=== PATIENT | male | born 1975 ===

== ENCOUNTER 2017-10-14 11:19 | Observation (INO) | payer MEDICARE ==
[2017-10-14 11:23] VITALS: BMI 46.3
[2017-10-14] MEDS ORDERED: Sodium Chloride 0.9% 1,000 ML IV STA ×2 (11:44→14:31)
--- NOTE | 2017-10-14 11:44 | ED PDOC ---
HPI: Psych/Substance Abuse Time Seen by Provider: 10/14/17 11:28 Chief Complaint (Provider): OD - 10-1 tabs of latuda and 10-15 tabs of depakote History Per: Patient History/Exam Limitations: no limitations Onset/Duration Of Symptoms: Hrs (1) Current Symptoms Are (Timing): Still Present Associated Symptoms: Depression, Suicidal Thoughts Additional Complaint(s): 42 yo male with history of bipolar disorder and DM presents after taking 10-15 tabs of latuda and 10-15 tabs of depakote 1 hour [facility]ITCHER. Pt states he called 911 after taking them because "he needs help". Pt denies medical complaints on arrival. Pt reports feel depressed. Past Medical History Reviewed: Historical Data, Nursing Documentation, Vital Signs Vital Signs: Last Vital Signs Temp 98.5 F 10/14/17 11:23 Pulse 87 10/14/17 11:23 Resp 17 10/14/17 11:23 BP 96/66 L 10/14/17 11:23 Pulse Ox 97 10/14/17 11:23 - Medical History PMH: Anxiety, Bipolar Disorder, Depression, Diabetes, Paranoia, Schizophrenia, Sleep Apnea Denies: Hepatitis, HIV, HTN, Chronic Kidney Disease, Seizures, Sexually Transmitted Disease - Surgical History Surgical History: No Surg Hx - Family History Family History: States: Unknown Family Hx - Living Arrangements Living Arrangements: With Family - Home Medications Home Medications: Ambulatory Orders Medication Instructions Recorded FLUoxetine [Prozac] 20 mg PO DAILY #30 cap 11/22/16 SITagliptin [Januvia] 25 mg PO DAILY #30 11/22/16 Divalproex [Depakote DR] 1 tab PO DAILY 10/14/17 Lurasidone HCl [Latuda] 1 tab PO HS 10/14/17 hydrOXYzine Pamoate [Vistaril] 1 cap PO TID 10/14/17 - Allergies Allergies/Adverse Reactions: Allergies Allergy/AdvReac Type Severity Reaction Status Date / Time carrot Allergy Verified 02/28/17 17:36 celery Allergy Verified 02/28/17 17:36 haloperidol [From Haldol] Allergy Verified 02/28/17 17:36 Penicillins Allergy Verified 02/28/17 17:36 risperidone [From Risperdal] Allergy Verified 02/28/17 17:36 Review of Systems ROS Statement: Except As Marked, All Systems Reviewed And Found Negative Constitutional: Negative for: Fever, Chills Gastrointestinal: Negative for: Nausea, Vomiting, Abdominal Pain, Diarrhea Neurological: Negative for: Confusion, Dizziness Psych: Positive for: Depression, Suicidal ideation Physical Exam - Reviewed Nursing Documentation Reviewed: Yes Vital Signs Reviewed: Yes - Physical Exam Appears: Positive for: Well, Non-toxic, No Acute Distress Head Exam: Positive for: ATRAUMATIC, NORMAL INSPECTION, NORMOCEPHALIC Skin: Positive for: Normal Color, Warm, DRY Eye Exam: Positive for: Normal appearance ENT: Positive for: Normal ENT Inspection Neck: Positive for: Normal, Painless ROM Cardiovascular/Chest: Positive for: Regular Rate, Rhythm Respiratory: Positive for: Normal Breath Sounds. Negative for: Accessory Muscle Use, Respiratory Distress Gastrointestinal/Abdominal: Positive for: Normal Exam, Soft. Negative for: Tenderness Back: Positive for: Normal Inspection Extremity: Positive for: Normal ROM Neurologic/Psych: Positive for: Alert, Oriented - Laboratory Results Result Diagrams: 10/14/17 12:20 10/14/17 12:32 - ECG O2 Sat by Pulse Oximetry: 97 Pulse Ox Interpretation: Normal Medical Decision Making Medical Decision Making: Initial labs normal. Active charcoal given. Pt vomited large amount according to RN x 1. PT reports alert and oriented throughout visit. Pt tolerated PO. 2nd depakote level elevated. Poison control recommends following depakote level with LFT until it begins to trend down. Admission to Dr. Bradshaw, Telemetry. PT continued on 1:1. Psychiatric floor once medically cleared. Disposition - Clinical Impression Clinical Impression: Depression, Overdose of drug/medicinal substance - Disposition Disposition Time: 18:10 Condition: STABLE - Pt Status Changed To: Hospital Disposition Of: Observation - POA Present On Arrival: None
[2017-10-14] MEDS ORDERED: Activated Charcoal/Sorbitol 25 GM/120 ML PO ONE (12:09)
[2017-10-14 12:16] LABS: SQUAMOUS EPITHIAL < 1 /hpf (0-5); URINE BILIRUBIN NEGATIVE (NEGATIVE); URINE BLOOD NEGATIVE (NEGATIVE); URINE CLARITY SLIGHTY-CLOUDY (Clear); URINE COLOR YELLOW (YELLOW); URINE GLUCOSE (UA) NEG (Normal); URINE LEUKOCYTE ESTERASE NEG Leu/uL (Negative); URINE PROTEIN NEGATIVE (NEGATIVE)
[2017-10-14 12:33] LABS: BASO # 0.1 K/uL (0.0-0.2); BASO % 0.9 % (0.0-2.0); EOS % 0.2 % (0.0-4.0); HEMOGLOBIN 14.2 g/dL (12.0-18.0); LYMPH # 3.2 K/uL (1.0-4.3); LYMPH % 37.6 % (20.0-40.0); MEAN CELL VOLUME 86.3 fl (80.0-94.0); MEAN CORPUSCULAR HEMOGLOBIN 28.9 pg (27.0-31.0); MEAN CORPUSCULAR HGB CONC 33.5 g/dL (33.0-37.0); MEAN PLATELET VOLUME 10.4 fl (7.2-11.7); MONO # 0.6 K/uL (0.0-0.8); MONO % 6.9 % (0.0-10.0); NEUT # 4.6 K/uL (1.8-7.0); NEUT % 54.4 % (50.0-75.0); NRBC % 0.4 % (0.0-0.0); RBC 4.93 Mil/uL (4.40-5.90); WHITE BLOOD COUNT 8.5 K/uL (4.8-10.8)
[2017-10-14 12:38] LABS: INR 1.1 (0.9-1.2); PARTIAL THROMBOPLASTIN TIME 29.5 Seconds (25.6-37.1); PROTHROMBIN TIME 11.7 Seconds (9.8-13.1)
[2017-10-14 12:44] LABS: BARBITURATES, UR NEGATIVE (NEGATIVE); BENZODIAZEPINES, UR NEGATIVE (NEGATIVE); OPIATES, UR NEGATIVE (NEGATIVE); PHENCYCLIDINE, UR NEGATIVE (NEGATIVE)
[2017-10-14 12:59] LABS: ACETAMINOPHEN < 10.0 ug/ml (10.0-30.0); SALICYLATE < 1.0 mg/dl
[2017-10-14 13:00] LABS: ALB/GLOB RATIO 0.9 (1.0-2.1); ALBUMIN 3.9 g/dL (3.5-5.0); ALT/SGPT 49 U/L (21-72); AST/SGOT 33 U/L (17-59); BLOOD UREA NITROGEN 15 mg/dl (9-20); CALCIUM 9.2 mg/dL (8.4-10.2); GFR AFRICAN-AMERICAN > 60; GFR NON-AFRICAN AMERICAN > 60
--- NOTE | 2017-10-14 16:05 | CARD ---
APPROVED REPORT EKG Measurement Heart [id number] <Conclusion> Normal sinus rhythm Normal ECG
[2017-10-15] MEDS: Sodium Chloride 0.45% 1,000 ML IV SCH ×2 (00:51→09:39)
[2017-10-15 01:12] LABS: ALBUMIN 3.4 g/dL (3.5-5.0); ALT/SGPT 51 U/L (21-72); AST/SGOT 28 U/L (17-59); BLOOD UREA NITROGEN 14 mg/dl (9-20); CALCIUM 8.2 mg/dL (8.4-10.2); GFR AFRICAN-AMERICAN > 60; GFR NON-AFRICAN AMERICAN > 60
[2017-10-15 05:54] LABS: BASO # 0.1 K/uL (0.0-0.2); BASO % 0.7 % (0.0-2.0); EOS # 0.1 K/uL (0.0-0.7); EOS % 0.6 % (0.0-4.0); HEMOGLOBIN 12.8 g/dL (12.0-18.0); LYMPH % 34.9 % (20.0-40.0); MEAN CORPUSCULAR HEMOGLOBIN 28.6 pg (27.0-31.0); MEAN CORPUSCULAR HGB CONC 32.5 g/dL (33.0-37.0); MEAN PLATELET VOLUME 9.8 fl (7.2-11.7); MONO # 0.5 K/uL (0.0-0.8); MONO % 6.1 % (0.0-10.0); NEUT % 57.7 % (50.0-75.0); NRBC % 0.3 % (0.0-0.0); RBC 4.48 Mil/uL (4.40-5.90); RED CELL DISTRIBUTION WIDTH 14.9 % (11.5-14.5); WHITE BLOOD COUNT 8.7 K/uL (4.8-10.8)
[2017-10-15] MEDS: Insulin Lispro (humaLOG) 100 Units/ml Inj SC SCH ×2 (08:16→12:48)
--- NOTE | 2017-10-15 08:19 | RAD ---
HISTORY: Admission COMPARISON: Chest radiographs 12/23/2014. TECHNIQUE: Chest PA and lateral FINDINGS: LUNGS: No active pulmonary disease. PLEURA: No significant pleural effusion identified. No pneumothorax apparent. CARDIOVASCULAR: Normal. OSSEOUS STRUCTURES: No significant abnormalities. VISUALIZED UPPER ABDOMEN: Normal. OTHER FINDINGS: None. IMPRESSION: No interval acute cardiopulmonary disease appreciated.
[2017-10-15 08:34] VITALS: RESP 18
[2017-10-15] MEDS ORDERED: Enoxaparin 40 mg Syringe SC SCH (09:00)
[2017-10-15] MEDS ORDERED: Pneumococcal 23-Valent Vaccine IM ONE (09:05)
--- NOTE | 2017-10-15 10:19 | CP.PCM.CON ---
History of Present Illness - History of Present Illness History of Present Illness: pt is 42 ya old male with previous psychiatric diagnosis of schizoaffective disorder, diagnosed after , multiple inpatient hospitalizations pt currently has not been compliant with medications of follow up for about a month , pt stated he went to [facility] about two months ago to seek better treatment for his illness, was admitted in a hospital there did not feel better continued to be anxious and experiencing suicidal ideations and auditory hallucinations, he moved back to [place] two weeks ago was staying with his mother became hopeless and helpless and experiencing panic attacks, on day he presented to ER he experienced suicidal ideation, resulting in overdose on medications , then he called 911 pt continues to be depressed and anxious continues to have passive suicidal ideation, reported non command auditory hallucinations putting him down, denied manic symptoms, denied substance abuse He says his psychiatric history began shortly after 12/24 as he worked near [facility] and began having flashbacks. He says shortly thereafter he became religiously preoccupied and a few years later began hearing voices. Past Patient History - Infectious Disease Hx of Infectious Diseases: None - Tetanus Immunizations Tetanus Immunization: Unknown - Past Medical History & Family History Past Medical History?: Yes - Past Social History Smoking Status: Current Some Days Smoker - CARDIAC Hx Hypertension: No - PULMONARY Hx Sleep Apnea: Yes - NEUROLOGICAL Hx Seizures: No - HEENT Hx HEENT Problems: No - RENAL Hx Chronic Kidney Disease: No - ENDOCRINE/METABOLIC Hx Endocrine Disorders: Yes Hx Diabetes Mellitus Type 2: Yes - HEMATOLOGICAL/ONCOLOGICAL Hx Human Immunodeficiency Virus (HIV): No - INTEGUMENTARY Hx Dermatological Problems: No - MUSCULOSKELETAL/RHEUMATOLOGICAL Hx Musculoskeletal Disorders: No Hx Falls: No - GASTROINTESTINAL Hx Gastrointestinal Disorders: No - GENITOURINARY/GYNECOLOGICAL Hx Sexually Transmitted Disorders: No - PSYCHIATRIC Hx Anxiety: Yes Hx Bipolar Disorder: Yes Hx Depression: Yes Hx Paranoia: Yes Hx Schizophrenia: Yes Hx Substance Use: No - SURGICAL HISTORY Hx Surgeries: Yes Hx Orthopedic Surgery: Yes (right leg) - ANESTHESIA Hx Anesthesia: Yes Hx Anesthesia Reactions: No Meds Allergies/Adverse Reactions: Allergies Allergy/AdvReac Type Severity Reaction Status Date / Time carrot Allergy Verified 02/28/17 17:36 celery Allergy Verified 02/28/17 17:36 haloperidol [From Haldol] Allergy Verified 02/28/17 17:36 Penicillins Allergy Verified 02/28/17 17:36 risperidone [From Risperdal] Allergy Verified 02/28/17 17:36 - Medications Medications: Current Medications Enoxaparin Sodium (Lovenox) 40 mg SC DAILY [facility] PRN Reason: Protocol Last Admin: 10/15/17 09:11 Dose: 40 mg Sodium Chloride (Sodium Chloride 0.45%) 1,000 mls @ 100 mls/hr IV .Q10H [facility] Last Admin: 10/15/17 09:39 Dose: Not Given Insulin Human Lispro (Humalog) 0 units SC ACHS [facility] PRN Reason: Protocol Last Admin: 10/15/17 08:16 Dose: Not Given Sitagliptin Phosphate (Januvia) 25 mg PO DAILY [facility] Last Admin: 10/15/17 09:10 Dose: 25 mg Physical Exam - Psychiatric Exam Additional comments: pt seen in bed, anxious mood depressed affect, speech soft and slow thought form coherent alert, awake.ox3 fair insight and poor judgment Results - Vital Signs Recent Vital Signs: Last Vital Signs Temp 98.3 F 10/15/17 08:34 Pulse 74 10/15/17 08:34 Resp 18 10/15/17 08:34 BP 107/68 10/15/17 08:34 Pulse Ox 97 10/15/17 08:34 - Labs Result Diagrams: 10/15/17 05:15 10/15/17 00:52 Labs: Laboratory Results - last 24 hr 10/14/17 10/14/17 10/14/17 11:59 12:00 12:00 WBC RBC Hgb Hct MCV MCH MCHC RDW Plt Count MPV Neut % (Auto) Lymph % (Auto) Vance % (Auto) Eos % (Auto) Baso % (Auto) Neut # (Auto) Lymph # (Auto) Vance # (Auto) Eos # (Auto) Baso # (Auto) PT INR APTT Sodium Potassium Chloride Carbon Dioxide Anion Gap BUN Creatinine Est GFR ( Amer) Est GFR (Non-Af Amer) POC Glucose (mg/dL) 88 Random Glucose Calcium Total Bilirubin AST ALT Alkaline Phosphatase Total Protein Albumin Globulin Albumin/Globulin Ratio Urine Color Yellow Urine Clarity Slighty-cloudy Urine pH 7.0 Ur Specific [place] 1.023 Urine Protein Negative Urine Glucose (UA) Neg Urine Ketones Trace Urine Blood Negative Urine Nitrate Negative Urine Bilirubin Negative Urine Urobilinogen 4.0 Ur Leukocyte Esterase Neg Urine RBC (Auto) 3 Urine Microscopic WBC < 1 Ur Squamous Epith Cells < 1 Salicylates Urine Opiates Screen Negative Urine Methadone Screen Negative Acetaminophen Ur Barbiturates Screen Negative Valproic Acid Ur Phencyclidine Scrn Negative Ur Amphetamines Screen Negative U Benzodiazepines Scrn Negative U Oth Cocaine Metabols Negative U Cannabinoids Screen Negative Alcohol, Quantitative 10/14/17 10/14/17 10/14/17 12:20 12:20 12:20 WBC 8.5 RBC 4.93 Hgb 14.2 Hct 42.5 MCV 86.3 MCH 28.9 MCHC 33.5 RDW 15.0 H Plt Count 172 MPV 10.4 Neut % (Auto) 54.4 Lymph % (Auto) 37.6 Vance % (Auto) 6.9 Eos % (Auto) 0.2 Baso % (Auto) 0.9 Neut # (Auto) 4.6 Lymph # (Auto) 3.2 Vance # (Auto) 0.6 Eos # (Auto) 0.0 Baso # (Auto) 0.1 PT 11.7 INR 1.1 APTT 29.5 Sodium Potassium Chloride Carbon Dioxide Anion Gap BUN Creatinine Est GFR ( Amer) Est GFR (Non-Af Amer) POC Glucose (mg/dL) Random Glucose Calcium Total Bilirubin AST ALT Alkaline Phosphatase Total Protein Albumin Globulin Albumin/Globulin Ratio Urine Color Urine Clarity Urine pH Ur Specific [place] Urine Protein Urine Glucose (UA) Urine Ketones Urine Blood Urine Nitrate Urine Bilirubin Urine Urobilinogen Ur Leukocyte Esterase Urine RBC (Auto) Urine Microscopic WBC Ur Squamous Epith Cells Salicylates < 1.0 Urine Opiates Screen Urine Methadone Screen Acetaminophen < 10.0 L Ur Barbiturates Screen Valproic Acid 54.0 Ur Phencyclidine Scrn Ur Amphetamines Screen U Benzodiazepines Scrn U Oth Cocaine Metabols U Cannabinoids Screen Alcohol, Quantitative 10/14/17 10/14/17 10/14/17 12:32 16:16 21:09 WBC RBC Hgb Hct MCV MCH MCHC RDW Plt Count MPV Neut % (Auto) Lymph % (Auto) Vance % (Auto) Eos % (Auto) Baso % (Auto) Neut # (Auto) Lymph # (Auto) Vance # (Auto) Eos # (Auto) Baso # (Auto) PT INR APTT Sodium 146 Potassium 4.0 Chloride 110 H Carbon Dioxide 20 L Anion Gap 20 BUN 15 Creatinine 0.9 Est GFR ( Amer) > 60 Est GFR (Non-Af Amer) > 60 POC Glucose (mg/dL) Random Glucose 87 Calcium 9.2 Total Bilirubin 0.6 AST 33 ALT 49 Alkaline Phosphatase 96 Total Protein 8.0 Albumin 3.9 Globulin 4.1 H Albumin/Globulin Ratio 0.9 L Urine Color Urine Clarity Urine pH Ur Specific [place] Urine Protein Urine Glucose (UA) Urine Ketones Urine Blood Urine Nitrate Urine Bilirubin Urine Urobilinogen Ur Leukocyte Esterase Urine RBC (Auto) Urine Microscopic WBC Ur Squamous Epith Cells Salicylates Urine Opiates Screen Urine Methadone Screen Acetaminophen Ur Barbiturates Screen Valproic Acid 131.8 H 108.4 H Ur Phencyclidine Scrn Ur Amphetamines Screen U Benzodiazepines Scrn U Oth Cocaine Metabols U Cannabinoids Screen Alcohol, Quantitative < 10 10/15/17 10/15/17 10/15/17 00:52 00:52 05:15 WBC 8.7 RBC 4.48 Hgb 12.8 Hct 39.4 MCV 88.0 MCH 28.6 MCHC 32.5 L RDW 14.9 H Plt Count 139 MPV 9.8 Neut % (Auto) 57.7 Lymph % (Auto) 34.9 Vance % (Auto) 6.1 Eos % (Auto) 0.6 Baso % (Auto) 0.7 Neut # (Auto) 5.0 Lymph # (Auto) 3.0 Vance # (Auto) 0.5 Eos # (Auto) 0.1 Baso # (Auto) 0.1 PT INR APTT Sodium 142 Potassium 3.7 Chloride 109 H Carbon Dioxide 22 Anion Gap 15 BUN 14 Creatinine 0.9 Est GFR ( Amer) > 60 Est GFR (Non-Af Amer) > 60 POC Glucose (mg/dL) Random Glucose 103 Calcium 8.2 L Total Bilirubin 0.5 AST 28 ALT 51 Alkaline Phosphatase 83 Total Protein 6.9 Albumin 3.4 L Globulin 3.4 Albumin/Globulin Ratio 1.0 Urine Color Urine Clarity Urine pH Ur Specific [place] Urine Protein Urine Glucose (UA) Urine Ketones Urine Blood Urine Nitrate Urine Bilirubin Urine Urobilinogen Ur Leukocyte Esterase Urine RBC (Auto) Urine Microscopic WBC Ur Squamous Epith Cells Salicylates Urine Opiates Screen Urine Methadone Screen Acetaminophen Ur Barbiturates Screen Valproic Acid 81.2 Ur Phencyclidine Scrn Ur Amphetamines Screen U Benzodiazepines Scrn U Oth Cocaine Metabols U Cannabinoids Screen Alcohol, Quantitative 10/15/17 05:15 WBC RBC Hgb Hct MCV MCH MCHC RDW Plt Count MPV Neut % (Auto) Lymph % (Auto) Vance % (Auto) Eos % (Auto) Baso % (Auto) Neut # (Auto) Lymph # (Auto) Vance # (Auto) Eos # (Auto) Baso # (Auto) PT INR APTT Sodium Potassium Chloride Carbon Dioxide Anion Gap BUN Creatinine Est GFR ( Amer) Est GFR (Non-Af Amer) POC Glucose (mg/dL) Random Glucose Calcium Total Bilirubin AST ALT Alkaline Phosphatase Total Protein Albumin Globulin Albumin/Globulin Ratio Urine Color Urine Clarity Urine pH Ur Specific [place] Urine Protein Urine Glucose (UA) Urine Ketones Urine Blood Urine Nitrate Urine Bilirubin Urine Urobilinogen Ur Leukocyte Esterase Urine RBC (Auto) Urine Microscopic WBC Ur Squamous Epith Cells Salicylates Urine Opiates Screen Urine Methadone Screen Acetaminophen Ur Barbiturates Screen Valproic Acid 66.0 Ur Phencyclidine Scrn Ur Amphetamines Screen U Benzodiazepines Scrn U Oth Cocaine Metabols U Cannabinoids Screen Alcohol, Quantitative Assessment & Plan - Assessment and Plan (Free Text) Assessment: schizoaffective disorder depressed PTSD OBESITY SLEEP APNEA Plan: pt at current mental status continues to have suicidal ideation pt is danger to self, continue 1:1 pt would benefit from admission to psychiatry unit for stabilization pt agreed to sign voluntary for admission
[2017-10-15 10:56] VITALS: PULSE 71
[2017-10-15 12:03] VITALS: BP 109/70; TEMP 98.1; O2SAT 96
--- NOTE | 2017-10-15 19:01 | CP.PCM.HP ---
History of Present Illness - History of Present Illness History of Present Illness: CC: Drug Overdose History of Present Illness: A 42 ya old male with H/O BEE, DMII and previous psychiatric diagnosis of schizoaffective disorder, diagnosed after , multiple inpatient hospitalizations pt currently has not been compliant with medications or follow up for about a month, pt stated he went to [facility] about two months ago to seek better treatment for his illness, was admitted in a hospital there did not feel better continued to be anxious and experiencing suicidal ideations and auditory hallucinations, he moved back to [place] two weeks ago was staying with his mother became hopeless and helpless and experiencing panic attacks, on day he presented to ER he experienced suicidal ideation, resulting in overdose on medications with 15 500mg Depakotes , then he called 911. Poison control recommended to monitor LFTs until Depakote level starts to decreasing trend. pt continues to be depressed and anxious continues to have passive suicidal ideation, reported non command auditory hallucinations putting him down, denied manic symptoms, denied substance abuse. Present on Admission - Present on Admission Any Indicators Present on Admission: No Review of Systems - Review of Systems All systems: reviewed and no additional remarkable complaints except Past Patient History - Infectious Disease Hx of Infectious Diseases: None - Tetanus Immunizations Tetanus Immunization: Unknown - Past Medical History & Family History Past Medical History?: Yes Past Family History: Reviewed and not pertinent - Past Social History Smoking Status: Current Some Days Smoker Alcohol: Social Drugs: Denies - CARDIAC Hx Hypertension: No - PULMONARY Hx Sleep Apnea: Yes - NEUROLOGICAL Hx Seizures: No - HEENT Hx HEENT Problems: No - RENAL Hx Chronic Kidney Disease: No - ENDOCRINE/METABOLIC Hx Endocrine Disorders: Yes Hx Diabetes Mellitus Type 2: Yes - HEMATOLOGICAL/ONCOLOGICAL Hx Human Immunodeficiency Virus (HIV): No - INTEGUMENTARY Hx Dermatological Problems: No - MUSCULOSKELETAL/RHEUMATOLOGICAL Hx Musculoskeletal Disorders: No Hx Falls: No - GASTROINTESTINAL Hx Gastrointestinal Disorders: No - GENITOURINARY/GYNECOLOGICAL Hx Sexually Transmitted Disorders: No - PSYCHIATRIC Hx Anxiety: Yes Hx Bipolar Disorder: Yes Hx Depression: Yes Hx Paranoia: Yes Hx Schizophrenia: Yes Hx Substance Use: No - SURGICAL HISTORY Hx Surgeries: Yes Hx Orthopedic Surgery: Yes (right leg) - ANESTHESIA Hx Anesthesia: Yes Hx Anesthesia Reactions: No Meds Allergies/Adverse Reactions: Allergies Allergy/AdvReac Type Severity Reaction Status Date / Time carrot Allergy Verified 02/28/17 17:36 celery Allergy Verified 02/28/17 17:36 haloperidol [From Haldol] Allergy Verified 02/28/17 17:36 Penicillins Allergy Verified 02/28/17 17:36 risperidone [From Risperdal] Allergy Verified 02/28/17 17:36 Physical Exam - Constitutional Appears: Well, No Acute Distress - Head Exam Head Exam: ATRAUMATIC, NORMAL INSPECTION, NORMOCEPHALIC - Eye Exam Eye Exam: EOMI, Normal appearance, PERRL Pupil Exam: NORMAL ACCOMODATION, PERRL - ENT Exam ENT Exam: Mucous Membranes Moist, Normal Exam - Neck Exam Neck exam: Positive for: Full Rom, Normal Inspection - Respiratory Exam Respiratory Exam: Clear to Auscultation Bilateral, NORMAL BREATHING PATTERN - Cardiovascular Exam Cardiovascular Exam: REGULAR RHYTHM, +S1, +S2 - GI/Abdominal Exam GI & Abdominal Exam: Normal Bowel Sounds, Soft. absent: Tenderness - Extremities Exam Extremities exam: Positive for: full ROM, normal capillary refill, normal inspection - Back Exam Back exam: NORMAL INSPECTION. absent: CVA tenderness (L), CVA tenderness (R) - Neurological Exam Neurological exam: Alert, CN II-XII Intact, Normal Gait, Oriented x3, Reflexes Normal - Psychiatric Exam Psychiatric exam: Normal Affect, Normal Mood - Skin Skin Exam: Dry, Intact, Normal Color, Warm Results - Vital Signs Recent Vital Signs: Last Vital Signs Temp 98.1 F 10/15/17 12:03 Pulse 71 10/15/17 12:03 Resp 18 10/15/17 12:03 BP 109/70 10/15/17 12:03 Pulse Ox 96 10/15/17 12:03 - Labs Result Diagrams: 10/15/17 05:15 10/15/17 00:52 Labs: Laboratory Results - last 24 hr 10/14/17 10/15/17 10/15/17 21:09 00:52 00:52 WBC RBC Hgb Hct MCV MCH MCHC RDW Plt Count MPV Neut % (Auto) Lymph % (Auto) [place] % (Auto) Eos % (Auto) Baso % (Auto) Neut # (Auto) Lymph # (Auto) [place] # (Auto) Eos # (Auto) Baso # (Auto) Sodium 142 Potassium 3.7 Chloride 109 H Carbon Dioxide 22 Anion Gap 15 BUN 14 Creatinine 0.9 Est GFR ( Amer) > 60 Est GFR (Non-Af Amer) > 60 POC Glucose (mg/dL) Random Glucose 103 Calcium 8.2 L Total Bilirubin 0.5 AST 28 ALT 51 Alkaline Phosphatase 83 Total Protein 6.9 Albumin 3.4 L Globulin 3.4 Albumin/Globulin Ratio 1.0 Valproic Acid 108.4 H 81.2 10/15/17 10/15/17 10/15/17 05:15 05:15 05:16 WBC 8.7 RBC 4.48 Hgb 12.8 Hct 39.4 MCV 88.0 MCH 28.6 MCHC 32.5 L RDW 14.9 H Plt Count 139 MPV 9.8 Neut % (Auto) 57.7 Lymph % (Auto) 34.9 [place] % (Auto) 6.1 Eos % (Auto) 0.6 Baso % (Auto) 0.7 Neut # (Auto) 5.0 Lymph # (Auto) 3.0 [place] # (Auto) 0.5 Eos # (Auto) 0.1 Baso # (Auto) 0.1 Sodium Potassium Chloride Carbon Dioxide Anion Gap BUN Creatinine Est GFR ( Amer) Est GFR (Non-Af Amer) POC Glucose (mg/dL) 81 Random Glucose Calcium Total Bilirubin AST ALT Alkaline Phosphatase Total Protein Albumin Globulin Albumin/Globulin Ratio Valproic Acid 66.0 10/15/17 11:17 WBC RBC Hgb Hct MCV MCH MCHC RDW Plt Count MPV Neut % (Auto) Lymph % (Auto) [place] % (Auto) Eos % (Auto) Baso % (Auto) Neut # (Auto) Lymph # (Auto) [place] # (Auto) Eos # (Auto) Baso # (Auto) Sodium Potassium Chloride Carbon Dioxide Anion Gap BUN Creatinine Est GFR ( Amer) Est GFR (Non-Af Amer) POC Glucose (mg/dL) 81 Random Glucose Calcium Total Bilirubin AST ALT Alkaline Phosphatase Total Protein Albumin Globulin Albumin/Globulin Ratio Valproic Acid - EKG Data EKG Interpreted by: Myself EKG shows normal: Sinus rhythm, Danese, Intervals, QRS complexes, ST-T waves Rate: Normal - Imaging and Cardiology Chest x-ray Status: Report reviewed by me Additional comment: No Active disease Assessment & Plan (1) Overdose of drug/medicinal substance Assessment and Plan: Suicidal Attempt Major Depression Normal LFT, and High Depakote Level (Trended down to Normal) Continue 1 to 1 Medically Cleared to transfer to [facility] Psych on board Status: Acute (2) Schizoaffective disorder Status: Chronic Priority: High (3) Morbid obesity Status: Chronic Priority: Medium (4) Sleep apnea Assessment and Plan: Continue CPAP Status: Chronic Priority: High
== END 2017-10-15 14:45 ==
LOC: H.ER 11:19 → H.ERHOLD 19:07 → H.TEL 21:27
PROVIDERS: ADMIT Internal Medicine; ATTEND Internal Medicine
DX: T42.6X2A Poisoning by other antiepileptic and sedative-hypnotic drugs, intentional self-harm, initial encounter (principal); F25.1 Schizoaffective disorder, depressive type; F43.10 Post-traumatic stress disorder, unspecified; F31.9 Bipolar disorder, unspecified; E11.9 Type 2 diabetes mellitus without complications; G47.33 Obstructive sleep apnea (adult) (pediatric); F41.9 Anxiety disorder, unspecified; E66.01 Morbid (severe) obesity due to excess calories; Z91.14 Patient's other noncompliance with medication regimen; Z23 Encounter for immunization; Z79.84 Long term (current) use of oral hypoglycemic drugs; F17.210 Nicotine dependence, cigarettes, uncomplicated; Z88.0 Allergy status to penicillin; Y92.9 Unspecified place or not applicable
CPT/HCPCS: 36415; 71046; 80053; 80164; 81003; 82948; 85025; 85610; 85730; 87086; 90732; 93005; 94660; 96360; 96361; 96372; 99285; G0009; G0378; G0480; J1650; J7030

== ENCOUNTER 2017-10-15 14:51 | Inpatient (IN) | payer MEDICARE ==
[2017-10-14 11:23] VITALS: BMI 46.3
[2017-10-15] MEDS ORDERED: Magnesium Hydroxide Susp 30 ml UD PO PRN (15:08)
[2017-10-15] MEDS ORDERED: DiphenhydrAMINE 50 mg/ml Inj IM PRN (15:08)
[2017-10-15] MEDS ORDERED: Alum-Mag Hydrox-Simethicone Susp (30 mL) PO PRN (15:08)
--- NOTE | 2017-10-15 15:18 | PCM.PSYCH ---
Initial Psychiatric Evaluation - Initial Psychiatric Evaluation Type of Admission: Voluntary Legal Status: Capacity Chief Complaint (in patient's own words): "I tried to kill myself." Patient's Reaction to Hospitalization: HPI: 41 yo male w/ h/o schizoaffective disorder, presents s/p suicide attempt by overdose of a mix of 20 pills of Latuda and Depakote. He reports that he was feeling depressed, frustrated and upset prior to the suicide attempt. He reports auditory hallucinations, last heard yesterday and that he has intermittent visual hallucinations of ghosts and shadows. He is able to contract for safety at this time and denies current active suicidal ideation/ plan/intent. PPHx: >10 psychiatric hospitalizations; 3 prior suicide attempts; most recently prescribed Latuda, Depakote and Prozac PMHx: DM, Sleep Apnea ALL: Haldol/Risperdal- Dystonic reactions; Carrots, Celery, PCN SHx: On disability; lives w/ mom, single, no children, completed college (BS) FHx: Mother w/ h/o Bipolar Disorder Current Medications: Active Medications Generic Name Dose Route Start Last Admin Trade Name Freq PRN Reason Stop Dose Admin Acetaminophen 650 mg 10/15/17 15:08 Tylenol 325mg Tab PO Q4 PRN Pain, moderate (4-7) Al Hydrox/Mg Hydrox/Simethicone 30 ml 10/15/17 15:08 Maalox Plus 30 Ml PO Q4 PRN Dyspepsia Diphenhydramine HCl 50 mg 10/15/17 15:08 Benadryl IM Q6 PRN Extrapyramidal S/S Unable PO Diphenhydramine HCl 50 mg 10/15/17 15:08 Benadryl PO Q6 PRN Extrapyramidal Symptoms Divalproex Sodium 500 mg 10/16/17 17:00 Rosalia Brink(*Bid*) PO BID [facility] Lorazepam 2 mg 10/15/17 15:08 Ativan IM Q4 PRN Anxiety/Agitation,Unable PO Lorazepam 2 mg 10/15/17 15:08 Ativan PO Q4 PRN Anxiety/Agitation Magnesium Hydroxide 30 ml 10/15/17 15:08 Milk Of Magnesia PO HS PRN Constipation Sitagliptin Phosphate 25 mg 10/16/17 09:00 Januvia PO DAILY [facility] Ziprasidone 20 mg 10/16/17 09:00 Geodon Cap PO BID [facility] Past Psychiatric History - Past Psychiatric History Pertinent Medical Hx (Current Medical&Sleep Prob, Allergies): Allergies Allergy/AdvReac Type Severity Reaction Status Date / Time carrot Allergy Verified 02/28/17 17:36 celery Allergy Verified 02/28/17 17:36 haloperidol [From Haldol] Allergy Verified 02/28/17 17:36 Penicillins Allergy Verified 02/28/17 17:36 risperidone [From Risperdal] Allergy Verified 02/28/17 17:36 SITagliptin [Januvia] 25 mg PO DAILY #30 11/22/16 Review of Systems - Psychiatric Psychiatric: As Per HPI, Abnormal Sleep Pattern, Anhedonia, Anxiety, Auditory Hallucinations, Change in Appetite, Depression, Difficulty Concentrating, Hallucinations, Hopelessness, Irritability, Mood Swings, Suicidal Ideation, Visual Hallucinations Mental Status Examination - Personal Presentation Personal Presentation: Looks stated age - Affect Affect: Constricted, Depressed - Motor Activity Motor Activity: Calm - Reliability in Providing Information Reliability in Providing Information: Good - Speech Speech: Organized - Mood Mood: Depressed, Anxious - Formal Thought Process Formal Thought Process: Hallucinations - Hallucinations/Delusions Hallucinations: Visual - Obsessions/Compulsions Obsessions: No Compulsions: No - Cognitive Functions Orientation: Person, Place, Situation, Time Sensorium: Alert Attention/Concentration: Attentive Estimate of Intelligence: Average Judgement: Intact, as evidence by: Insight regarding need for hospitalization Memory: Recent intact, as evidence by: Ability to recall events of the day, Remote intact, as evidenced by: Abilit to recall sig. life events, Remote intact , as evidenced by: Ability to recall historical events - Risk Risk: Suicidal, Diminished functioning - Strength & Assets Inventory Strength & Assets Inventory: Cooperative DSM 5 DX - DSM 5 DSM 5 Diagnosis: Schizoaffective Disorder - Recommended/Plan of Treatment Treatment Recommendations and Plan of Treatment: Schizoaffective Disorder -Will hold psychiatric medications for an additional day given recent suicide attempt; will consider restarting Depakote tomorrow and treatment with an antipsychotic -Medicine consult -1:1 for safety -Individual and group therapy -Psychoeducation -Disposition planning Projected ELOS: 7-10 days Discharge Plan and Discharge Criteria: Discharge when patient is psychiatrically stable
[2017-10-15 16:35] LABS: HDL CHOLESTEROL 15 MG/DL (30-70)
[2017-10-15 16:45] LABS: LDL CHOLESTEROL 118 mg/dL (0-129)
[2017-10-15] MEDS ORDERED: Divalproex 500 mg DR(BID formulation) PO SCH (17:00)
[2017-10-15] MEDS: Insulin Regular 100 units/ml SC SCH ×2 (17:33→21:35)
--- NOTE | 2017-10-15 18:29 | PCM.BM ---
<Deborah Jane - Last Filed: 10/15/17 18:27> Treatment Plan Problems - Problems identified on initial assessmt Suicidal Ideation Date Initiated: 10/15/17 Time Initiated: 18:28 Assessment reference: HP, NA Status: Active Hopelessness/helplessness Date Initiated: 10/15/17 Time Initiated: 18:33 Assessment reference: HP, NA Status: Active Treatment assets and liabiliti Patient Assests: cooperative, educated, ADL independent, negotiates basic needs , cognitively intact, strong madina Patient Liabilities: financial problems, dietary restrictions, medical problems , other - Milieu Protocol Maintain good personal hygiene: daily Encourage regular showers, daily Remind patient to perform daily oral care, daily Assist patient to perform ADL's Conduct patient checks and document Observation sheet: 1:1 (suicidal ideation) Maintain personal safety: every shift Educate patient to report safety concerns to staff, every shift Monitor environment for contraband/sharps Medication safety: Monitor for expected outcome, potential side effects: every shift, Assess barriers to learning: every shift, Assess readiness for medication education: every shift Milieu Narrative: Schizoaffective Disorder -Will hold psychiatric medications for an additional day given recent suicide attempt; will consider restarting Depakote tomorrow and treatment with an antipsychotic -Medicine consult -1:1 for safety -Individual and group therapy -Psychoeducation -Disposition planning Discharge/Continuing Care - Treatment Team Participation Patient/Family/SO Statement: Schizoaffective Disorder -Will hold psychiatric medications for an additional day given recent suicide attempt; will consider restarting Depakote tomorrow and treatment with an antipsychotic -Medicine consult -1:1 for safety -Individual and group therapy -Psychoeducation -Disposition planning <Giovana Gregg - Last Filed: 10/16/17 07:45> - Diagnosis (1) Schizoaffective disorder Status: Chronic Interventions: Medication management, Individual and group therapy, Psychoeducation 10/16/17 07:45 <Jake Espana - Last Filed: 10/18/17 08:17> Family Contact Family involvement: Family/SO is involved Family contact: Patient declines to allow family contact at present Family contact name: Zhane - Mother Family contacted how many times per week?: 0 Family contact comment: Pt's mother is currently hospitalized at [place] and cannot be contacted by staff. - Goals for Treatment Patient goals for treatment: Pt reported he would like his mood to be lifted and referred to organizations that assist with housing. Discharge/Continuing Care - Education Needs Education Needs: Patient Medication, Patient Diagnosis/Disease Process, Patient Coping Skills, Patient Placement options, Patient Community resources, Patient Aftercare Safety Plan - Discharge Discharge Criteria: Tolerates medication w/o severe side effects, Free of Suicidal thoughts, Free of paranoid thoughts, Normal sleep pattern, Ability to care for self, Reduction of target symptoms Discharge to:: Custodial - Additional Comments 10/18/17 08:16 Pt was calm and cooperative during treatment team. Pt reported he was still experiencing passive SI and auditory hallucinations that were not command in nature. Pt did not offer any complaints or questions. It was discussed that pt' s Geodon will be increased to 40mg with the potential to go to 80mg. - Treatment Team Participation Discussed with Family/SO: No Was Patient/Family/SO present at Treatment Team Meeting: Yes
--- NOTE | 2017-10-16 07:45 | PCM.PYCHPN ---
Psychiatric Progress Note - Psychiatric Progress Note Patient seen today, length of contact: Patient evaluated, case discussed with team, chart reviewed Patient Chief Complaint: "I was hearing voices." Problems Identified/Issues Discussed: Patient reports that he had difficulty sleeping last night. He continued to hear auditory hallucinations yesterday, criticizing him. He denies acute ideation to harm self or others. He continues to feel depressed and anxious. We discussed starting Geodon and restarting Depakote. EKG yesterday was normal. Diagnostic Results: 10/15/17: EKG Normal Medication Change: Yes (Start Geodon 20 mg PO BID; Start Depakote 500 mg PO BID) Medical Record Reviewed: Yes Consults ordered or reviewed: Medicine consult Mental Status Examination - Cognitive Function Orientation: Person, Place, Situation, Time Memory: Intact Attention: WNL Concentration: WNL Association: WNL Fund of Knowledge: WN Decription of patient's judgement and insights: Improving I/J - Mood Mood: Depressed, Anxious - Affect Affect: Constricted, Depressed - Speech Speech: Appropriate - Formal Thought Process Formal Thought Process: Hallucinations Psychotic Thoughts and Behaviors: +AH - Suicidal Ideation Suicidal Ideation: No - Homicidal Ideation Homicidal Ideation: No Goal/Treatment Plan - Goal/Treatment Plan Need for Continued Stay: Remain at risks for inpatient hospitalization, Severe depression anxiety, Discharge may exacerbated symptoms Progress Toward Problem(s) and Goals/Treatment Plan: Schizoaffective Disorder -Start Geodon and Depakote -Medicine consult -Discontinue 1:1; patient can contract for safety and has been in good behavioral control -Individual and group therapy -Psychoeducation -Disposition planning Estimated Date of D/C: 10/22/17
[2017-10-16] MEDS: Divalproex 500 mg DR(BID formulation) PO SCH ×2 (08:05→16:34)
[2017-10-16] MEDS: Insulin Regular 100 units/ml SC SCH (08:06)
[2017-10-16 08:30] LABS: BASO # 0.1 K/uL (0.0-0.2); BASO % 0.8 % (0.0-2.0); EOS # 0.1 K/uL (0.0-0.7); EOS % 0.9 % (0.0-4.0); HEMOGLOBIN 13.9 g/dL (12.0-18.0); LYMPH # 2.7 K/uL (1.0-4.3); LYMPH % 35.4 % (20.0-40.0); MEAN CELL VOLUME 86.5 fl (80.0-94.0); MEAN CORPUSCULAR HEMOGLOBIN 28.9 pg (27.0-31.0); MEAN CORPUSCULAR HGB CONC 33.4 g/dL (33.0-37.0); MONO # 0.5 K/uL (0.0-0.8); MONO % 6.3 % (0.0-10.0); NEUT # 4.3 K/uL (1.8-7.0); NEUT % 56.6 % (50.0-75.0); NRBC % 0.2 % (0.0-0.0); RBC 4.8 Mil/uL (4.40-5.90); WHITE BLOOD COUNT 7.5 K/uL (4.8-10.8)
[2017-10-16 08:42] LABS: ALB/GLOB RATIO 1.1 (1.0-2.1); ALT/SGPT 36 U/L (21-72); AST/SGOT 25 U/L (17-59); BLOOD UREA NITROGEN 14 mg/dl (9-20); CALCIUM 8.9 mg/dL (8.4-10.2); GFR AFRICAN-AMERICAN > 60; GFR NON-AFRICAN AMERICAN > 60; HDL CHOLESTEROL 16 MG/DL (30-70)
[2017-10-16 08:51] LABS: LDL CHOLESTEROL 138 mg/dL (0-129)
[2017-10-16 08:55] LABS: T4 8.39 ug/dl (5.5-11.0)
--- NOTE | 2017-10-17 08:31 | CP.PCM.HP ---
History of Present Illness - History of Present Illness History of Present Illness: CC: Overdose for Suicidal Attempt HPI: A 42 ya old male with H/O BEE, DMII and previous psychiatric diagnosis of schizoaffective disorder, diagnosed after 12/24 , multiple inpatient hospitalizations pt currently has not been compliant with medications or follow up for about a month, pt stated he went to [facility] about two months ago to seek better treatment for his illness, was admitted in a hospital there did not feel better continued to be anxious and experiencing suicidal ideations and auditory hallucinations, he moved back to [place] two weeks ago was staying with his mother became hopeless and helpless and experiencing panic attacks, on day he presented to ER he experienced suicidal ideation, resulting in overdose on medications with 15 500mg Depakotes , then he called 911. Poison control recommended to monitor LFTs until Depakote level starts to decreasing trend. Depakote level normalized and transferred to [facility] for further Management. pt continues to be depressed and anxious continues to have passive suicidal ideation, reported non command auditory hallucinations putting him down, denied manic symptoms, denied substance abuse. Present on Admission - Present on Admission Any Indicators Present on Admission: No Review of Systems - Review of Systems All systems: reviewed and no additional remarkable complaints except Past Patient History - Infectious Disease Hx of Infectious Diseases: None - Tetanus Immunizations Tetanus Immunization: Unknown - Past Medical History & Family History Past Medical History?: Yes - Past Social History Smoking Status: Current Some Days Smoker - CARDIAC Hx Cardiac Disorders: No Hx Hypertension: No - PULMONARY Hx Respiratory Disorders: No Hx Sleep Apnea: Yes (has cpap) - NEUROLOGICAL Hx Neurological Disorder: No Hx Seizures: No - HEENT Hx HEENT Problems: No - RENAL Hx Chronic Kidney Disease: No - ENDOCRINE/METABOLIC Hx Endocrine Disorders: Yes Hx Diabetes Mellitus Type 2: Yes - HEMATOLOGICAL/ONCOLOGICAL Hx Human Immunodeficiency Virus (HIV): No - INTEGUMENTARY Hx Dermatological Problems: No - MUSCULOSKELETAL/RHEUMATOLOGICAL Hx Musculoskeletal Disorders: No Hx Falls: No - GASTROINTESTINAL Hx Gastrointestinal Disorders: No - GENITOURINARY/GYNECOLOGICAL Hx Sexually Transmitted Disorders: No - PSYCHIATRIC Hx Anxiety: Yes Hx Bipolar Disorder: Yes Hx Depression: Yes Hx Substance Use: No - SURGICAL HISTORY Hx Surgeries: Yes Hx Orthopedic Surgery: Yes (right leg) - ANESTHESIA Hx Anesthesia: Yes Hx Anesthesia Reactions: No Meds Allergies/Adverse Reactions: Allergies Allergy/AdvReac Type Severity Reaction Status Date / Time carrot Allergy Verified 02/28/17 17:36 celery Allergy Verified 02/28/17 17:36 haloperidol [From Haldol] Allergy Verified 02/28/17 17:36 Penicillins Allergy Verified 02/28/17 17:36 risperidone [From Risperdal] Allergy Verified 02/28/17 17:36 Physical Exam - Constitutional Appears: Well, No Acute Distress - Head Exam Head Exam: ATRAUMATIC, NORMAL INSPECTION, NORMOCEPHALIC - Eye Exam Eye Exam: EOMI, Normal appearance, PERRL Pupil Exam: NORMAL ACCOMODATION, PERRL - ENT Exam ENT Exam: Mucous Membranes Moist, Normal Exam - Neck Exam Neck exam: Positive for: Normal Inspection - Respiratory Exam Respiratory Exam: Clear to Auscultation Bilateral, NORMAL BREATHING PATTERN - Cardiovascular Exam Cardiovascular Exam: REGULAR RHYTHM, +S1, +S2 - GI/Abdominal Exam GI & Abdominal Exam: Normal Bowel Sounds, Soft. absent: Tenderness - Extremities Exam Extremities exam: Positive for: full ROM, normal capillary refill, normal inspection - Back Exam Back exam: NORMAL INSPECTION. absent: CVA tenderness (L), CVA tenderness (R) - Neurological Exam Neurological exam: Alert, CN II-XII Intact, Normal Gait, Oriented x3, Reflexes Normal - Psychiatric Exam Psychiatric exam: Normal Affect, Normal Mood - Skin Skin Exam: Dry, Intact, Normal Color, Warm Results - Vital Signs Recent Vital Signs: Last Vital Signs Temp 97.3 F L 10/17/17 06:00 Pulse 67 10/17/17 06:20 Resp 18 10/17/17 06:00 BP 125/76 10/17/17 06:00 Pulse Ox - Labs Result Diagrams: 10/18/17 06:55 10/18/17 06:55 Labs: Laboratory Results - last 24 hr 10/16/17 10/16/17 10/16/17 08:11 08:11 08:11 WBC 7.5 RBC 4.80 Hgb 13.9 Hct 41.5 MCV 86.5 MCH 28.9 MCHC 33.4 RDW 15.0 H Plt Count 154 MPV 10.0 Neut % (Auto) 56.6 Lymph % (Auto) 35.4 [place] % (Auto) 6.3 Eos % (Auto) 0.9 Baso % (Auto) 0.8 Neut # (Auto) 4.3 Lymph # (Auto) 2.7 [place] # (Auto) 0.5 Eos # (Auto) 0.1 Baso # (Auto) 0.1 Sodium 143 Potassium 4.2 Chloride 106 Carbon Dioxide 27 Anion Gap 14 BUN 14 Creatinine 1.0 Est GFR ( Amer) > 60 Est GFR (Non-Af Amer) > 60 POC Glucose (mg/dL) Random Glucose 90 Hemoglobin A1c 6.4 Calcium 8.9 Total Bilirubin 0.6 AST 25 ALT 36 Alkaline Phosphatase 96 Total Protein 7.7 Albumin 4.0 Globulin 3.7 Albumin/Globulin Ratio 1.1 Triglycerides 161 H D Cholesterol 187 LDL Cholesterol Direct 138 H HDL Cholesterol 16 L Thyroxine (T4) 8.39 TSH 3rd Generation 4.02 Valproic Acid RPR 10/16/17 10/16/17 10/17/17 08:11 08:11 05:32 WBC RBC Hgb Hct MCV MCH MCHC RDW Plt Count MPV Neut % (Auto) Lymph % (Auto) [place] % (Auto) Eos % (Auto) Baso % (Auto) Neut # (Auto) Lymph # (Auto) [place] # (Auto) Eos # (Auto) Baso # (Auto) Sodium Potassium Chloride Carbon Dioxide Anion Gap BUN Creatinine Est GFR ( Amer) Est GFR (Non-Af Amer) POC Glucose (mg/dL) 104 Random Glucose Hemoglobin A1c Calcium Total Bilirubin AST ALT Alkaline Phosphatase Total Protein Albumin Globulin Albumin/Globulin Ratio Triglycerides Cholesterol LDL Cholesterol Direct HDL Cholesterol Thyroxine (T4) TSH 3rd Generation Valproic Acid 33.6 L RPR Nonreactive Assessment & Plan (1) Schizoaffective disorder Assessment and Plan: Suicidal Attempt Continue Psych Recommendation Status: Chronic Priority: High (2) Overdose of drug/medicinal substance Assessment and Plan: Depakote Normalized and Normal Hepatic Function Status: Acute (3) Sleep apnea Assessment and Plan: Continue CPAP 8, FIO2 28% PRN Sleep Counselled bout Weight Loss Status: Chronic Priority: High (4) Diabetes mellitus type II, controlled Assessment and Plan: Continue Current Care DM Diet Status: Acute Priority: Low
--- NOTE | 2017-10-17 08:38 | CARD ---
APPROVED REPORT EKG Measurement Heart [id number] <Conclusion> Normal sinus rhythm Normal ECG
[2017-10-17] MEDS: Divalproex 500 mg DR(BID formulation) PO SCH ×2 (09:02→16:31)
--- NOTE | 2017-10-17 10:31 | PCM.PYCHPN ---
Psychiatric Progress Note - Psychiatric Progress Note Patient seen today, length of contact: Patient evaluated, case discussed with team, chart reviewed Patient Chief Complaint: "I'm depressed." Problems Identified/Issues Discussed: Patient continues to report feeling depressed w/ intermittent passive suicidal ideation w/o plan or intent. He continue to have auditory hallucinations of people criticizing him. +Sleep disturbances. No adverse effects to medications reported. Diagnostic Results: 10/15/17: EKG Normal Medication Change: Yes (Increase Geodon to 40 mg PO BID) Medical Record Reviewed: Yes Consults ordered or reviewed: Medicine consult Mental Status Examination - Cognitive Function Orientation: Person, Place, Situation, Time Memory: Intact Attention: WNL Concentration: WNL Association: WNL Fund of Knowledge: [facility] Decription of patient's judgement and insights: Improving I/J - Mood Mood: Depressed, Anxious - Affect Affect: Constricted, Depressed - Speech Speech: Appropriate - Formal Thought Process Formal Thought Process: Hallucinations Psychotic Thoughts and Behaviors: +AH - Suicidal Ideation Suicidal Ideation: No - Homicidal Ideation Homicidal Ideation: No Goal/Treatment Plan - Goal/Treatment Plan Need for Continued Stay: Remain at risks for inpatient hospitalization, Severe depression anxiety, Discharge may exacerbated symptoms Progress Toward Problem(s) and Goals/Treatment Plan: Schizoaffective Disorder -Continue Depakote 500 mg PO BID -Increase Geodon to 40 mg PO BID -Medicine consult -Individual and group therapy -Psychoeducation -Disposition planning Estimated Date of D/C: 10/22/17
--- NOTE | 2017-10-17 15:22 | CP.PCM.PN ---
Subjective - Date & Time of Evaluation Date of Evaluation: 10/17/17 Time of Evaluation: 15:00 - Subjective Subjective: Seen and examined at the bed side. States feeling better. Continue to Hallucinate, and feeling depressed. BS well controlled. Objective - Vital Signs/Intake and Output Vital Signs (last 24 hours): Temp Pulse Resp BP Pulse Ox 97.3 F L 67 18 125/76 10/17/17 06:00 10/17/17 06:20 10/17/17 06:00 10/17/17 06:00 - Medications Medications: Current Medications Acetaminophen (Tylenol 325mg Tab) 650 mg PO Q4 PRN PRN Reason: Pain, moderate (4-7) Al Hydrox/Mg Hydrox/Simethicone (Maalox Plus 30 Ml) 30 ml PO Q4 PRN PRN Reason: Dyspepsia Chlorpromazine (Thorazine) 25 mg PO Q8 PRN PRN Reason: Agitation Last Admin: 10/16/17 08:10 Dose: 25 mg Chlorpromazine (Thorazine) 25 mg IM Q8 PRN PRN Reason: Agitation Diphenhydramine HCl (Benadryl) 50 mg IM Q6 PRN PRN Reason: Extrapyramidal S/S Unable PO Diphenhydramine HCl (Benadryl) 50 mg PO Q6 PRN PRN Reason: Extrapyramidal Symptoms Divalproex Sodium (Depakote Dr(*Bid*)) 500 mg PO BID@0900,1700 [facility] Last Admin: 10/17/17 09:02 Dose: 500 mg Lorazepam (Ativan) 2 mg IM Q4 PRN PRN Reason: Anxiety/Agitation,Unable PO Lorazepam (Ativan) 2 mg PO Q4 PRN PRN Reason: Anxiety/Agitation Last Admin: 10/16/17 19:48 Dose: 2 mg Magnesium Hydroxide (Milk Of Magnesia) 30 ml PO HS PRN PRN Reason: Constipation Sitagliptin Phosphate (Januvia) 25 mg PO DAILY [facility] Last Admin: 10/17/17 09:03 Dose: 25 mg Ziprasidone (Geodon Cap) 40 mg PO BID [facility] - Labs Labs: 10/16/17 08:11 10/16/17 08:11 - Constitutional Appears: Well, No Acute Distress - Head Exam Head Exam: ATRAUMATIC, NORMAL INSPECTION, NORMOCEPHALIC - Eye Exam Eye Exam: EOMI, Normal appearance, PERRL Pupil Exam: NORMAL ACCOMODATION, PERRL - ENT Exam ENT Exam: Mucous Membranes Moist, Normal Exam - Neck Exam Neck Exam: Full ROM, Normal Inspection. absent: Lymphadenopathy - Respiratory Exam Respiratory Exam: Clear to Ausculation Bilateral, NORMAL BREATHING PATTERN - Cardiovascular Exam Cardiovascular Exam: REGULAR RHYTHM, +S1, +S2. absent: Murmur - GI/Abdominal Exam GI & Abdominal Exam: Soft, Normal Bowel Sounds. absent: Tenderness - Extremities Exam Extremities Exam: Full ROM, Normal Capillary Refill, Normal Inspection. absent : Joint Swelling, Pedal Edema - Back Exam Back Exam: NORMAL INSPECTION - Neurological Exam Neurological Exam: Alert, Awake, CN II-XII Intact, Normal Gait, Oriented x3 - Psychiatric Exam Psychiatric exam: Depressed, Suicidal Ideation Additional comments: Auditory Hallucinations. - Skin Skin Exam: Dry, Intact, Normal Color, Warm Assessment and Plan (1) Schizoaffective disorder Status: Acute (2) Sleep apnea Status: Chronic (3) Overdose of drug/medicinal substance Status: Resolved (4) Diabetes mellitus type II, controlled Status: Chronic
[2017-10-18 07:16] LABS: BASO # 0.1 K/uL (0.0-0.2); BASO % 0.9 % (0.0-2.0); EOS # 0.1 K/uL (0.0-0.7); EOS % 1.5 % (0.0-4.0); HEMOGLOBIN 14.6 g/dL (12.0-18.0); LYMPH # 3.6 K/uL (1.0-4.3); LYMPH % 39.6 % (20.0-40.0); MEAN CELL VOLUME 87.4 fl (80.0-94.0); MEAN CORPUSCULAR HEMOGLOBIN 28.7 pg (27.0-31.0); MEAN CORPUSCULAR HGB CONC 32.8 g/dL (33.0-37.0); MEAN PLATELET VOLUME 9.7 fl (7.2-11.7); MONO # 0.6 K/uL (0.0-0.8); MONO % 6.8 % (0.0-10.0); NEUT # 4.7 K/uL (1.8-7.0); NEUT % 51.2 % (50.0-75.0); NRBC % 0.2 % (0.0-0.0); RBC 5.1 Mil/uL (4.40-5.90); RED CELL DISTRIBUTION WIDTH 14.9 % (11.5-14.5); WHITE BLOOD COUNT 9.1 K/uL (4.8-10.8)
[2017-10-18 07:41] LABS: BLOOD UREA NITROGEN 13 mg/dl (9-20); GFR AFRICAN-AMERICAN > 60; GFR NON-AFRICAN AMERICAN > 60
[2017-10-18 07:42] LABS: ALB/GLOB RATIO 1.1 (1.0-2.1); ALBUMIN 3.8 g/dL (3.5-5.0); ALT/SGPT 56 U/L (21-72); AST/SGOT 27 U/L (17-59); CALCIUM 8.9 mg/dL (8.4-10.2)
--- NOTE | 2017-10-18 08:52 | PCM.PYCHPN ---
Psychiatric Progress Note - Psychiatric Progress Note Patient seen today, length of contact: Patient evaluated, case discussed with team, chart reviewed Patient Chief Complaint: "I'm depressed." Problems Identified/Issues Discussed: Patient continues to report feeling depressed w/ intermittent passive suicidal ideation w/o plan or intent. He continue to have auditory hallucinations of people saying "Get Ready," but he does not know what they are referring to. No adverse effects to medications reported. Diagnostic Results: 10/15/17: EKG Normal Medication Change: No Medical Record Reviewed: Yes Consults ordered or reviewed: Medicine consult Mental Status Examination - Cognitive Function Orientation: Person, Place, Situation, Time Memory: Intact Attention: WNL Concentration: WNL Association: WNL Fund of Knowledge: [facility] Decription of patient's judgement and insights: Improving I/J - Mood Mood: Depressed, Anxious - Affect Affect: Constricted, Depressed - Speech Speech: Appropriate - Formal Thought Process Formal Thought Process: Hallucinations Psychotic Thoughts and Behaviors: +AH - Suicidal Ideation Suicidal Ideation: Yes Plan: Passive SI; no active SI/plan/intent - Homicidal Ideation Homicidal Ideation: No Goal/Treatment Plan - Goal/Treatment Plan Need for Continued Stay: Remain at risks for inpatient hospitalization, Severe depression anxiety, Discharge may exacerbated symptoms Progress Toward Problem(s) and Goals/Treatment Plan: Schizoaffective Disorder -Continue Depakote 500 mg PO BID -Increase Geodon to 40 mg PO BID -Medicine consult -Individual and group therapy -Psychoeducation -Disposition planning Estimated Date of D/C: 10/24/17
[2017-10-18] MEDS: Divalproex 500 mg DR(BID formulation) PO SCH ×3 (09:22→16:24)
--- NOTE | 2017-10-18 23:45 | CP.PCM.PN ---
Subjective - Date & Time of Evaluation Date of Evaluation: 10/18/17 Time of Evaluation: 15:10 - Subjective Subjective: Seen and examined at the bed side. No new complaint. Objective - Vital Signs/Intake and Output Vital Signs (last 24 hours): Temp Pulse Resp BP Pulse Ox 97.2 F L 78 20 102/54 L 10/18/17 15:51 10/18/17 15:51 10/18/17 15:51 10/18/17 15:51 - Medications Medications: Current Medications Acetaminophen (Tylenol 325mg Tab) 650 mg PO Q4 PRN PRN Reason: Pain, moderate (4-7) Al Hydrox/Mg Hydrox/Simethicone (Maalox Plus 30 Ml) 30 ml PO Q4 PRN PRN Reason: Dyspepsia Chlorpromazine (Thorazine) 25 mg PO Q8 PRN PRN Reason: Agitation Last Admin: 10/16/17 08:10 Dose: 25 mg Chlorpromazine (Thorazine) 25 mg IM Q8 PRN PRN Reason: Agitation Diphenhydramine HCl (Benadryl) 50 mg IM Q6 PRN PRN Reason: Extrapyramidal S/S Unable PO Diphenhydramine HCl (Benadryl) 50 mg PO Q6 PRN PRN Reason: Extrapyramidal Symptoms Divalproex Sodium (Depakote Dr(*Bid*)) 500 mg PO BID@0900,1700 [facility] Last Admin: 10/18/17 16:24 Dose: 500 mg Lorazepam (Ativan) 2 mg IM Q4 PRN PRN Reason: Anxiety/Agitation,Unable PO Lorazepam (Ativan) 2 mg PO Q4 PRN PRN Reason: Anxiety/Agitation Last Admin: 10/18/17 16:26 Dose: 2 mg Magnesium Hydroxide (Milk Of Magnesia) 30 ml PO HS PRN PRN Reason: Constipation Sitagliptin Phosphate (Januvia) 25 mg PO DAILY [facility] Last Admin: 10/18/17 09:36 Dose: 25 mg Ziprasidone (Geodon Cap) 40 mg PO BID [facility] Last Admin: 10/18/17 16:24 Dose: 40 mg - Labs Labs: 10/18/17 06:55 10/18/17 06:55 Assessment and Plan (1) Schizoaffective disorder Assessment & Plan: Suicidal Attempt Continue Psych Recommendation Status: Chronic Priority: High (2) Overdose of drug/medicinal substance Assessment and Plan: Depakote Normalized and Normal Hepatic Function Status: Acute (3) Sleep apnea Assessment and Plan: Continue CPAP 8, FIO2 28% PRN Sleep Counselled bout Weight Loss Status: Chronic Priority: High (4) Diabetes mellitus type II, controlled Assessment and Plan: Continue Current Care DM Diet Status: Chronic
[2017-10-19] MEDS: Divalproex 500 mg DR(BID formulation) PO SCH ×2 (08:21→17:02)
--- NOTE | 2017-10-19 09:49 | PCM.PYCHPN ---
Psychiatric Progress Note - Psychiatric Progress Note Patient seen today, length of contact: Patient evaluated, case discussed with team, chart reviewed Patient Chief Complaint: "I'm depressed." Problems Identified/Issues Discussed: Patient continues to report feeling depressed w/ continued auditory hallucinations. He denies acute VH/SI/HI. No adverse effects to medications reported. Diagnostic Results: 10/15/17: EKG Normal Medication Change: No Medical Record Reviewed: Yes Consults ordered or reviewed: Medicine consult Mental Status Examination - Cognitive Function Orientation: Person, Place, Situation, Time Memory: Intact Attention: WNL Concentration: WNL Association: WNL Fund of Knowledge: [facility] Decription of patient's judgement and insights: Improving I/J - Mood Mood: Depressed, Anxious - Affect Affect: Constricted, Depressed - Speech Speech: Appropriate - Formal Thought Process Formal Thought Process: Hallucinations Psychotic Thoughts and Behaviors: +AH - Suicidal Ideation Suicidal Ideation: No - Homicidal Ideation Homicidal Ideation: No Goal/Treatment Plan - Goal/Treatment Plan Need for Continued Stay: Remain at risks for inpatient hospitalization, Severe depression anxiety, Discharge may exacerbated symptoms Progress Toward Problem(s) and Goals/Treatment Plan: Schizoaffective Disorder -Continue Depakote 500 mg PO BID -Continue Geodon 40 mg PO BID -Medicine consult -Individual and group therapy -Psychoeducation -Disposition planning Estimated Date of D/C: 10/24/17
--- NOTE | 2017-10-19 22:12 | CP.PCM.PN ---
Subjective - Date & Time of Evaluation Date of Evaluation: 10/19/17 Time of Evaluation: 07:10 - Subjective Subjective: No new complaint. Objective - Vital Signs/Intake and Output Vital Signs (last 24 hours): Temp Pulse Resp BP Pulse Ox 97.7 F 70 20 112/60 10/19/17 17:00 10/19/17 17:00 10/19/17 17:00 10/19/17 17:00 - Medications Medications: Current Medications Acetaminophen (Tylenol 325mg Tab) 650 mg PO Q4 PRN PRN Reason: Pain, moderate (4-7) Al Hydrox/Mg Hydrox/Simethicone (Maalox Plus 30 Ml) 30 ml PO Q4 PRN PRN Reason: Dyspepsia Chlorpromazine (Thorazine) 25 mg PO Q8 PRN PRN Reason: Agitation Last Admin: 10/16/17 08:10 Dose: 25 mg Chlorpromazine (Thorazine) 25 mg IM Q8 PRN PRN Reason: Agitation Diphenhydramine HCl (Benadryl) 50 mg IM Q6 PRN PRN Reason: Extrapyramidal S/S Unable PO Diphenhydramine HCl (Benadryl) 50 mg PO Q6 PRN PRN Reason: Extrapyramidal Symptoms Divalproex Sodium (Depakote Dr(*Bid*)) 500 mg PO BID@0900,1700 [facility] Last Admin: 10/19/17 17:02 Dose: 500 mg Lorazepam (Ativan) 2 mg IM Q4 PRN PRN Reason: Anxiety/Agitation,Unable PO Lorazepam (Ativan) 2 mg PO Q4 PRN PRN Reason: Anxiety/Agitation Last Admin: 10/18/17 16:26 Dose: 2 mg Magnesium Hydroxide (Milk Of Magnesia) 30 ml PO HS PRN PRN Reason: Constipation Sitagliptin Phosphate (Januvia) 25 mg PO DAILY [facility] Last Admin: 10/19/17 08:22 Dose: 25 mg Ziprasidone (Geodon Cap) 40 mg PO BID [facility] Last Admin: 10/19/17 17:02 Dose: 40 mg - Labs Labs: 10/18/17 06:55 10/18/17 06:55 Assessment and Plan (1) Schizoaffective disorder Assessment & Plan: Suicidal Attempt- Improved Continue Psych Recommendation Status: Chronic Priority: High (2) Overdose of drug/medicinal substance Assessment and Plan: Depakote Normalized and Normal Hepatic Function Status: Acute (3) Sleep apnea Assessment and Plan: Continue CPAP 8, FIO2 28% PRN Sleep Counselled bout Weight Loss Status: Chronic Priority: High (4) Diabetes mellitus type II, controlled Assessment and Plan: Continue Current Care DM Diet Status: Chronic
--- NOTE | 2017-10-20 07:24 | PCM.PYCHPN ---
Psychiatric Progress Note - Psychiatric Progress Note Patient seen today, length of contact: Patient evaluated, case discussed with team, chart reviewed Patient Chief Complaint: "I'm depressed." Problems Identified/Issues Discussed: No new events overnight. Patient continues to report feeling depressed w/ continued auditory hallucinations. He denies acute VH/SI/HI. No adverse effects to medications reported. Diagnostic Results: 10/15/17: EKG Normal Medication Change: No Medical Record Reviewed: Yes Consults ordered or reviewed: Medicine consult Mental Status Examination - Cognitive Function Orientation: Person, Place, Situation, Time Memory: Intact Attention: WNL Concentration: WNL Association: WN Fund of Knowledge: [facility] Decription of patient's judgement and insights: Improving I/J - Mood Mood: Depressed, Anxious - Affect Affect: Constricted, Depressed - Speech Speech: Appropriate - Formal Thought Process Formal Thought Process: Hallucinations Psychotic Thoughts and Behaviors: +AH - Suicidal Ideation Suicidal Ideation: No - Homicidal Ideation Homicidal Ideation: No Goal/Treatment Plan - Goal/Treatment Plan Need for Continued Stay: Remain at risks for inpatient hospitalization, Severe depression anxiety, Discharge may exacerbated symptoms Progress Toward Problem(s) and Goals/Treatment Plan: Schizoaffective Disorder -Continue Depakote 500 mg PO BID -Continue Geodon 40 mg PO BID -Medicine consult -Individual and group therapy -Psychoeducation -Disposition planning Estimated Date of D/C: 10/24/17
[2017-10-20] MEDS: Divalproex 500 mg DR(BID formulation) PO SCH ×2 (08:13→17:06)
--- NOTE | 2017-10-20 17:40 | CP.PCM.PN ---
Subjective - Date & Time of Evaluation Date of Evaluation: 10/20/17 Time of Evaluation: 12:15 - Subjective Subjective: Seen and examined at the bed side. +MERAZ, Mild. States feeling better. Objective - Vital Signs/Intake and Output Vital Signs (last 24 hours): Temp Pulse Resp BP Pulse Ox 97.3 F L 73 20 116/56 L 10/20/17 16:01 10/20/17 16:01 10/20/17 16:01 10/20/17 16:01 - Medications Medications: Current Medications Acetaminophen (Tylenol 325mg Tab) 650 mg PO Q4 PRN PRN Reason: Pain, moderate (4-7) Al Hydrox/Mg Hydrox/Simethicone (Maalox Plus 30 Ml) 30 ml PO Q4 PRN PRN Reason: Dyspepsia Chlorpromazine (Thorazine) 25 mg PO Q8 PRN PRN Reason: Agitation Last Admin: 10/16/17 08:10 Dose: 25 mg Chlorpromazine (Thorazine) 25 mg IM Q8 PRN PRN Reason: Agitation Diphenhydramine HCl (Benadryl) 50 mg IM Q6 PRN PRN Reason: Extrapyramidal S/S Unable PO Diphenhydramine HCl (Benadryl) 50 mg PO Q6 PRN PRN Reason: Extrapyramidal Symptoms Divalproex Sodium (Depakote Dr(*Bid*)) 500 mg PO BID@0900,1700 [facility] Last Admin: 10/20/17 17:06 Dose: 500 mg Hydroxyzine Pamoate (Vistaril) 50 mg PO Q8 PRN PRN Reason: Anxiety Lorazepam (Ativan) 2 mg IM Q4 PRN PRN Reason: Anxiety/Agitation,Unable PO Lorazepam (Ativan) 2 mg PO Q4 PRN PRN Reason: Anxiety/Agitation Last Admin: 10/19/17 23:47 Dose: 2 mg Magnesium Hydroxide (Milk Of Magnesia) 30 ml PO HS PRN PRN Reason: Constipation Sitagliptin Phosphate (Januvia) 25 mg PO DAILY [facility] Last Admin: 10/20/17 08:13 Dose: 25 mg Ziprasidone (Geodon Cap) 40 mg PO BID [facility] Last Admin: 10/20/17 17:06 Dose: 40 mg - Labs Labs: 10/18/17 06:55 10/18/17 06:55 Assessment and Plan (1) Schizoaffective disorder Assessment & Plan: Improving Status: Chronic (2) Diabetes mellitus type II, controlled Status: Chronic (3) Morbid obesity Status: Chronic (4) Sleep apnea Status: Chronic (5) Overdose of drug/medicinal substance Status: Resolved
[2017-10-21] MEDS: Divalproex 500 mg DR(BID formulation) PO SCH ×2 (08:22→17:18)
--- NOTE | 2017-10-21 09:40 | PCM.PYCHPN ---
Psychiatric Progress Note - Psychiatric Progress Note Patient seen today, length of contact: Patient evaluated, case discussed with team, chart reviewed Patient Chief Complaint: "I'm depressed." Problems Identified/Issues Discussed: Patient continues to report feeling depressed w/ continued auditory hallucinations. He has passive suicidal ideation; but denies active suicidal plan/intent. We discussed possibly increasing the Geodon tomorrow if he continues to have AH. No adverse effects to medications reported. Diagnostic Results: 10/15/17: EKG Normal Medication Change: No Medical Record Reviewed: Yes Consults ordered or reviewed: Medicine consult Mental Status Examination - Cognitive Function Orientation: Person, Place, Situation, Time Memory: Intact Attention: WNL Concentration: WNL Association: WNL Fund of Knowledge: [facility] Decription of patient's judgement and insights: Improving I/J - Mood Mood: Depressed, Anxious - Affect Affect: Constricted, Depressed - Speech Speech: Appropriate - Formal Thought Process Formal Thought Process: Hallucinations Psychotic Thoughts and Behaviors: +AH - Suicidal Ideation Suicidal Ideation: Yes Plan: Passive SI w/o plan or intent - Homicidal Ideation Homicidal Ideation: No Goal/Treatment Plan - Goal/Treatment Plan Need for Continued Stay: Remain at risks for inpatient hospitalization, Severe depression anxiety, Discharge may exacerbated symptoms Progress Toward Problem(s) and Goals/Treatment Plan: Schizoaffective Disorder -Continue Depakote 500 mg PO BID; recheck VPA level -Continue Geodon 40 mg PO BID -Medicine consult -Individual and group therapy -Psychoeducation -Disposition planning Estimated Date of D/C: 10/25/17
--- NOTE | 2017-10-21 14:32 | CP.PCM.PN ---
Subjective - Date & Time of Evaluation Date of Evaluation: 10/21/17 Time of Evaluation: 14:30 - Subjective Subjective: Seen and examined at the bed side. Continue to complain to the yes, and nasal congestion. No fever or chills. Objective - Vital Signs/Intake and Output Vital Signs (last 24 hours): Temp Pulse Resp BP Pulse Ox 98.1 F 66 18 117/66 10/21/17 06:00 10/21/17 07:40 10/21/17 06:00 10/21/17 06:00 - Medications Medications: Current Medications Acetaminophen (Tylenol 325mg Tab) 650 mg PO Q4 PRN PRN Reason: Pain, moderate (4-7) Last Admin: 10/20/17 17:51 Dose: 650 mg Al Hydrox/Mg Hydrox/Simethicone (Maalox Plus 30 Ml) 30 ml PO Q4 PRN PRN Reason: Dyspepsia Chlorpromazine (Thorazine) 25 mg PO Q8 PRN PRN Reason: Agitation Last Admin: 10/16/17 08:10 Dose: 25 mg Chlorpromazine (Thorazine) 25 mg IM Q8 PRN PRN Reason: Agitation Diphenhydramine HCl (Benadryl) 50 mg IM Q6 PRN PRN Reason: Extrapyramidal S/S Unable PO Diphenhydramine HCl (Benadryl) 50 mg PO Q6 PRN PRN Reason: Extrapyramidal Symptoms Divalproex Sodium (Depakote Dr(*Bid*)) 500 mg PO BID@0900,1700 [facility] Last Admin: 10/21/17 08:22 Dose: 500 mg Hydroxyzine Pamoate (Vistaril) 50 mg PO Q8 PRN PRN Reason: Anxiety Loratadine (Claritin) 10 mg PO DAILY [facility] Last Admin: 10/21/17 08:22 Dose: 10 mg Lorazepam (Ativan) 2 mg IM Q4 PRN PRN Reason: Anxiety/Agitation,Unable PO Lorazepam (Ativan) 2 mg PO Q4 PRN PRN Reason: Anxiety/Agitation Last Admin: 10/19/17 23:47 Dose: 2 mg Magnesium Hydroxide (Milk Of Magnesia) 30 ml PO HS PRN PRN Reason: Constipation Sitagliptin Phosphate (Januvia) 25 mg PO DAILY [facility] Last Admin: 10/21/17 08:22 Dose: 25 mg Ziprasidone (Geodon Cap) 40 mg PO BID [facility] Last Admin: 10/21/17 08:22 Dose: 40 mg - Labs Labs: 10/18/17 06:55 10/18/17 06:55 Assessment and Plan (1) Schizoaffective disorder Assessment & Plan: Continue Psych Recommendation Status: Chronic (2) Diabetes mellitus type II, controlled Status: Chronic (3) Morbid obesity Status: Chronic (4) Sleep apnea Assessment & Plan: CPAP Status: Chronic (5) Overdose of drug/medicinal substance Status: Resolved (6) Allergic rhinitis Assessment & Plan: Continue Flonase and Leslie Status: Acute
[2017-10-22] MEDS: Divalproex 500 mg DR(BID formulation) PO SCH ×2 (08:34→16:11)
--- NOTE | 2017-10-22 08:59 | PCM.PYCHPN ---
Psychiatric Progress Note - Psychiatric Progress Note Patient seen today, length of contact: Patient evaluated, case discussed with team, chart reviewed Patient Chief Complaint: "I'm depressed." Problems Identified/Issues Discussed: Patient reports that his mood is starting to improve. He continue to hear intermittent AH, but does not want to increase the dosage of Geodon at this time. He denies active suicidal ideation/plan/intent. No adverse effects to medications reported. Diagnostic Results: 10/15/17: EKG Normal; VPA 48.6 on 10/22/17 Medication Change: No Medical Record Reviewed: Yes Consults ordered or reviewed: Medicine consult Mental Status Examination - Cognitive Function Orientation: Person, Place, Situation, Time Memory: Intact Attention: WNL Concentration: WNL Association: WNL Fund of Knowledge: [facility] Decription of patient's judgement and insights: Improving I/J - Mood Mood: Depressed - Affect Affect: Constricted - Speech Speech: Appropriate - Formal Thought Process Formal Thought Process: Hallucinations Psychotic Thoughts and Behaviors: +Intermittent AH - Suicidal Ideation Suicidal Ideation: No - Homicidal Ideation Homicidal Ideation: No Goal/Treatment Plan - Goal/Treatment Plan Need for Continued Stay: Remain at risks for inpatient hospitalization, Severe depression anxiety, Discharge may exacerbated symptoms Progress Toward Problem(s) and Goals/Treatment Plan: Schizoaffective Disorder; patient is improving clinically -Continue Depakote 500 mg PO BID; VPA 48.6 on 10/22/17 -Continue Geodon 40 mg PO BID -Medicine consult -Individual and group therapy -Psychoeducation -Disposition planning Estimated Date of D/C: 10/24/17
--- NOTE | 2017-10-22 19:19 | CP.PCM.PN ---
Subjective - Date & Time of Evaluation Date of Evaluation: 10/22/17 Time of Evaluation: 19:00 - Subjective Subjective: No New complaint. Objective - Vital Signs/Intake and Output Vital Signs (last 24 hours): Temp Pulse Resp BP Pulse Ox 97.1 F L 78 20 112/64 10/22/17 15:50 10/22/17 15:50 10/22/17 15:50 10/22/17 15:50 - Medications Medications: Current Medications Acetaminophen (Tylenol 325mg Tab) 650 mg PO Q4 PRN PRN Reason: Pain, moderate (4-7) Last Admin: 10/20/17 17:51 Dose: 650 mg Al Hydrox/Mg Hydrox/Simethicone (Maalox Plus 30 Ml) 30 ml PO Q4 PRN PRN Reason: Dyspepsia Diphenhydramine HCl (Benadryl) 50 mg IM Q6 PRN PRN Reason: Extrapyramidal S/S Unable PO Diphenhydramine HCl (Benadryl) 50 mg PO Q6 PRN PRN Reason: Extrapyramidal Symptoms Last Admin: 10/22/17 17:38 Dose: 50 mg Divalproex Sodium (Depakote Dr(*Bid*)) 500 mg PO BID@0900,1700 [facility] Last Admin: 10/22/17 16:11 Dose: 500 mg Fluticasone Propionate (Flonase) 2 spr [place]OR[place] DAILY [facility] Home Med (Cetirizine Hcl [Zyrtec]) 10 mg PO DAILY [facility] Last Admin: 10/22/17 08:35 Dose: 10 mg Hydroxyzine Pamoate (Vistaril) 50 mg PO Q8 PRN PRN Reason: Anxiety Last Admin: 10/22/17 16:10 Dose: 50 mg Lorazepam (Ativan) 2 mg IM Q4 PRN PRN Reason: Anxiety/Agitation,Unable PO Lorazepam (Ativan) 2 mg PO Q4 PRN PRN Reason: Anxiety/Agitation Last Admin: 10/19/17 23:47 Dose: 2 mg Magnesium Hydroxide (Milk Of Magnesia) 30 ml PO HS PRN PRN Reason: Constipation Sitagliptin Phosphate (Januvia) 25 mg PO DAILY [facility] Last Admin: 10/22/17 08:33 Dose: 25 mg Ziprasidone (Geodon Cap) 40 mg PO BID [facility] Last Admin: 10/22/17 16:11 Dose: 40 mg - Labs Labs: 10/18/17 06:55 10/18/17 06:55 Assessment and Plan (1) Schizoaffective disorder Status: Chronic (2) Diabetes mellitus type II, controlled Status: Chronic (3) Morbid obesity Status: Chronic (4) Sleep apnea Status: Chronic (5) Overdose of drug/medicinal substance Status: Resolved (6) Allergic rhinitis Assessment & Plan: Continue current Care Status: Acute
[2017-10-23] MEDS: Divalproex 500 mg DR(BID formulation) PO SCH ×2 (08:23→17:23)
--- NOTE | 2017-10-23 11:12 | PCM.PYCHPN ---
Psychiatric Progress Note - Psychiatric Progress Note Patient seen today, length of contact: Patient evaluated, case discussed with team, chart reviewed Patient Chief Complaint: "I'm fine." Problems Identified/Issues Discussed: Patient made vague suicidal statements w/o plan or intent when told he would be discharged tomorrow. Patient has been exhibiting increasingly manipulative behaviors. He is irritable w/ process description writer, when confronted about his lack of compliance with medications and how his behaviors have lead to him being rejected from previous housing and outpatient programs. Patient seems overtly manipulative and uses vocabulary that shows he is familiar with exaggerating symptoms to gain psychiatric admission or prolong his stays. At the end of the conversation, patient said he was offended by process description writer and asked the process description writer "how can you live with yourself:?" He is aware that he will be discharged tomorrow. He denies active suicidal ideation/plan/intent. No adverse effects to medications reported. Diagnostic Results: 10/15/17: EKG Normal; VPA 48.6 on 10/22/17 Medication Change: No Medical Record Reviewed: Yes Consults ordered or reviewed: Medicine consult Mental Status Examination - Cognitive Function Orientation: Person, Place, Situation, Time Memory: Intact Attention: WNL Concentration: WNL Association: WNL Fund of Knowledge: WN Decription of patient's judgement and insights: Improving I/J - Mood Mood: Neutral - Affect Affect: Broad - Speech Speech: Appropriate - Formal Thought Process Formal Thought Process: No Impairment Psychotic Thoughts and Behaviors: No AH/VH/paranoia/delusions - Suicidal Ideation Suicidal Ideation: No - Homicidal Ideation Homicidal Ideation: No Goal/Treatment Plan - Goal/Treatment Plan Need for Continued Stay: Discharge may exacerbated symptoms Progress Toward Problem(s) and Goals/Treatment Plan: Schizoaffective Disorder; r/o Personality Disorder -Continue Depakote 500 mg PO BID; VPA 48.6 on 10/22/17 -Continue Geodon 40 mg PO BID -Medicine consult -Individual and group therapy -Psychoeducation -Disposition planning- Discharge tomorrow Estimated Date of D/C: 10/24/17
[2017-10-23 15:49] VITALS: RESP 20
[2017-10-24] MEDS: Divalproex 500 mg DR(BID formulation) PO SCH ×2 (08:11→16:54)
--- NOTE | 2017-10-24 08:38 | CP.PCM.PN ---
Subjective - Date & Time of Evaluation Date of Evaluation: 10/23/17 Time of Evaluation: 23:05 - Subjective Subjective: Seen and examined at the bed side. Nasal blockage and congestion improved but still mild complain. On Fluticasone Nasal [place] and Leslie. Denies fever or chills. Objective - Vital Signs/Intake and Output Vital Signs (last 24 hours): Temp Pulse Resp BP Pulse Ox 97.3 F L 71 20 128/91 H 10/24/17 05:48 10/24/17 06:40 10/24/17 05:48 10/24/17 05:48 - Medications Medications: Current Medications Divalproex Sodium (Depakote Dr(*Bid*)) 500 mg PO BID@0900,1700 [facility] Last Admin: 10/24/17 08:11 Dose: 500 mg Fluticasone Propionate (Flonase) 2 spr FLORINA DAILY [facility] Last Admin: 10/24/17 08:11 Dose: 2 spr Home Med (Cetirizine Hcl [Zyrtec]) 10 mg PO DAILY [facility] Last Admin: 10/24/17 08:10 Dose: 10 mg Hydroxyzine Pamoate (Vistaril) 50 mg PO Q8 PRN PRN Reason: Anxiety Last Admin: 10/24/17 08:23 Dose: 50 mg Sitagliptin Phosphate (Januvia) 25 mg PO DAILY [facility] Last Admin: 10/24/17 08:11 Dose: 25 mg Ziprasidone (Geodon Cap) 40 mg PO BID [facility] Last Admin: 10/24/17 08:10 Dose: 40 mg - Labs Labs: 10/18/17 06:55 10/18/17 06:55 - Constitutional Appears: Well, No Acute Distress - Head Exam Head Exam: ATRAUMATIC, NORMAL INSPECTION, NORMOCEPHALIC - Eye Exam Eye Exam: EOMI, Normal appearance, PERRL Pupil Exam: NORMAL ACCOMODATION, PERRL - ENT Exam ENT Exam: Mucous Membranes Moist, Normal Exam - Neck Exam Neck Exam: Full ROM, Normal Inspection. absent: Lymphadenopathy - Respiratory Exam Respiratory Exam: Clear to Ausculation Bilateral, NORMAL BREATHING PATTERN - Cardiovascular Exam Cardiovascular Exam: REGULAR RHYTHM, +S1, +S2. absent: Murmur - GI/Abdominal Exam GI & Abdominal Exam: Soft, Normal Bowel Sounds. absent: Tenderness - Extremities Exam Extremities Exam: Full ROM, Normal Capillary Refill, Normal Inspection. absent : Joint Swelling, Pedal Edema - Back Exam Back Exam: NORMAL INSPECTION - Neurological Exam Neurological Exam: Alert, Awake, CN II-XII Intact, Normal Gait, Oriented x3 - Psychiatric Exam Psychiatric exam: Normal Affect, Normal Mood - Skin Skin Exam: Dry, Intact, Normal Color, Warm Assessment and Plan (1) Schizoaffective disorder Assessment & Plan: Improving Continue Current Care Status: Chronic (2) Diabetes mellitus type II, controlled Status: Chronic (3) Morbid obesity Assessment & Plan: Counselled about diet control Status: Chronic (4) Sleep apnea Assessment & Plan: CPAP Status: Chronic (5) Overdose of drug/medicinal substance Status: Resolved (6) Allergic rhinitis Status: Acute
--- NOTE | 2017-10-24 10:32 | PCM.PYCHDC ---
Mental Status Examination - Mental Status Examination Orientation: Person, Place, Situation, Time Memory: Intact Mood: Neutral Affect: Broad Speech: Appropriate Attention: WNL Concentration: WNL Association: WNL Fund of Knowledge: WNL Formal Thought Process: No Impairment Description of patient's judgement and insight: Fair I/J; patient is intentionally manipulative at times Psychotic Thoughts and Behaviors: No AH/VH/paranoia/delusions Suicidal Ideation: No Current Homicidal Ideation?: No Discharge Summary - Discharge Note Reason for Hospitalization: HPI: 41 yo male w/ h/o schizoaffective disorder, presents s/p suicide attempt by overdose of a mix of 20 pills of Latuda and Depakote. He reports that he was feeling depressed, frustrated and upset prior to the suicide attempt. He reports auditory hallucinations, last heard yesterday and that he has intermittent visual hallucinations of ghosts and shadows. He is able to contract for safety at this time and denies current active suicidal ideation/ plan/intent. PPHx: >10 psychiatric hospitalizations; 3 prior suicide attempts; most recently prescribed Latuda, Depakote and Prozac PMHx: DM, Sleep Apnea ALL: Haldol/Risperdal- Dystonic reactions; Carrots, Celery, PCN SHx: On disability; lives w/ mom, single, no children, completed college (BS) FHx: Mother w/ h/o Bipolar Disorder Laboratory Data: Abnormal Lab Results 10/24/17 05:44 POC Glucose (mg/dL) 89 Consultations:: List each consultation separately and include: 1. Reason for request. 2. Findings. 3. Follow-up Consultations: Medicine consult Summary of Hospital Course include:: 1. Description of specific treatment plan utilized for patients during their course of treatmen. 2. Summarize the time- course for resolution of acute symptoms and/or regressed behaviors. 3. Describe issues identified and worked on during hospitalization. 4. Describe medication utilized. 5. Describe medical problems identified and treated. 6. Reassessment of suicide risk Summary of Hospital Course: Patient admitted to the psychiatry unit. Individual and group therapy were provided. Patient was stabilized on Geodon 40 mg PO BID and Depakote 500 mg PO BID. He is currently psychiatrically stable for discharge. NO AH/VH/paranoia/ delusions/SI/HI. - Diagnosis (1) Schizoaffective disorder Current Visit: No Status: Chronic Priority: High - Final Diagnosis (DSM 5) Condition upon Discharge: STABLE DSM 5: Schizoaffective Disorder Disposition: HOME/ ROUTINE Follow-up Treatment Plan: Schizoaffective Disorder; r/o Personality Disorder -Continue Depakote 500 mg PO BID; VPA 48.6 on 10/22/17 -Continue Geodon 40 mg PO BID -Medicine consult -Individual and group therapy -Psychoeducation -Discharge today Prescriptions/Medication Reconciliation: Cetirizine HCl [Zyrtec] 10 mg PO DAILY #30 capsule Divalproex [Depakote DR(*BID*)] 500 mg PO BID@0900,1700 #60 tcp hydrOXYzine Pamoate [Vistaril] 50 mg PO Q8 PRN #60 cap PRN Reason: Anxiety SITagliptin [Januvia] 25 mg PO DAILY #30 tab Ziprasidone [Geodon Cap] 40 mg PO BID #60 cap - Smoking Cessation Smoking Cessation Medication prescribed: No Reason for not providing: Not indicated - Antipsychotic Medications Pt discharged on 2 or more routine antipsychotic medications: No
[2017-10-24 15:45] VITALS: BP 116/60; PULSE 83; TEMP 97.7
--- NOTE | 2017-10-24 21:53 | CP.PCM.PN ---
Subjective - Date & Time of Evaluation Date of Evaluation: 10/24/17 Time of Evaluation: 18:15 - Subjective Subjective: No New Complaint. Nasal Congestion resolved. Objective - Vital Signs/Intake and Output Vital Signs (last 24 hours): Temp Pulse Resp BP Pulse Ox 97.7 F 83 20 116/60 10/24/17 15:44 10/24/17 15:44 10/24/17 15:44 10/24/17 15:44 - Labs Labs: 10/18/17 06:55 10/18/17 06:55 - Constitutional Appears: Well, In Acute Distress - Head Exam Head Exam: ATRAUMATIC, NORMAL INSPECTION, NORMOCEPHALIC - Eye Exam Eye Exam: EOMI, Normal appearance, PERRL Pupil Exam: NORMAL ACCOMODATION, PERRL - ENT Exam ENT Exam: Mucous Membranes Moist, Normal Exam - Neck Exam Neck Exam: Full ROM, Normal Inspection. absent: Lymphadenopathy - Respiratory Exam Respiratory Exam: Clear to Ausculation Bilateral, NORMAL BREATHING PATTERN - Cardiovascular Exam Cardiovascular Exam: REGULAR RHYTHM, +S1, +S2. absent: Murmur - GI/Abdominal Exam GI & Abdominal Exam: Soft, Normal Bowel Sounds. absent: Tenderness - Extremities Exam Extremities Exam: Full ROM, Normal Capillary Refill, Normal Inspection. absent : Joint Swelling, Pedal Edema - Back Exam Back Exam: NORMAL INSPECTION - Neurological Exam Neurological Exam: Alert, Awake, CN II-XII Intact, Normal Gait, Oriented x3 - Psychiatric Exam Psychiatric exam: Normal Affect, Normal Mood - Skin Skin Exam: Dry, Intact, Normal Color, Warm Assessment and Plan (1) Schizoaffective disorder Status: Chronic (2) Diabetes mellitus type II, controlled Status: Chronic (3) Morbid obesity Status: Chronic (4) Sleep apnea Status: Chronic (5) Overdose of drug/medicinal substance Status: Resolved (6) Allergic rhinitis Status: Acute
== END 2017-10-24 20:50 | disposition home or self-care (01) | DRG 885 ==
LOC: H.STEP 15:25
PROVIDERS: ADMIT Psychiatry & Neurology Psychiatry; ATTEND Psychiatry & Neurology Psychiatry
PROC: GZHZZZZ Group Psychotherapy (ICD-10-PCS; principal; 2017-10-15)
PROC: 5A09557 Assistance with Respiratory Ventilation, Greater than 96 Consecutive Hours, Continuous Positive Airway Pressure (ICD-10-PCS; 2017-10-16)
DX: F25.9 Schizoaffective disorder, unspecified (principal); Z68.42 Body mass index [BMI] 45.0-49.9, adult; R45.851 Suicidal ideations; E11.9 Type 2 diabetes mellitus without complications; E66.01 Morbid (severe) obesity due to excess calories; G47.33 Obstructive sleep apnea (adult) (pediatric); Z91.14 Patient's other noncompliance with medication regimen; Z91.19 Patient's noncompliance with other medical treatment and regimen; Z88.0 Allergy status to penicillin; Z91.018 Allergy to other foods; F17.200 Nicotine dependence, unspecified, uncomplicated; Z71.3 Dietary counseling and surveillance; J30.9 Allergic rhinitis, unspecified